=== PATIENT | female | born 1940 | race Caucasian/White ===

== ENCOUNTER 2018-07-08 10:43 | Outpatient (REF) | payer MEDICARE, OTHER, SELFPAY ==
[2018-07-08 21:29] LABS: Anion Gap 7.8 mmol/L (3-11); BUN 14 mg/dL (7-18); CO2 32.2 mmol/L (21.0-32.0); CREATININE 1.04 mg/dL (0.55-1.02); Calcium 9.4 mg/dL (8.5-10.1); Chloride 100 mmol/L (98-107); Estimated GFR 51.25 (mL/min/1.73m2); Glucose 105 mg/dL (70-100); Potassium 4.1 mmol/L (3.5-5.1); Sodium 140 mmol/L (136-145)
== END 2018-07-08 11:03 ==
LOC: NCHCN 10:43
PROVIDERS: PCP Internal Medicine; Visit Provider Internal Medicine
DX: J44.9 Chronic obstructive pulmonary disease, unspecified (principal); R49.0 Dysphonia; Z95.2 Presence of prosthetic heart valve; Z79.01 Long term (current) use of anticoagulants
CPT/HCPCS: 80048

== ENCOUNTER 2019-04-08 17:36 | Outpatient (REF) | payer MEDICARE, OTHER, SELFPAY | END 2019-04-08 17:56 | LOC: NCHCN 17:36 | PROVIDERS: PCP Internal Medicine; Visit Provider Internal Medicine | DX: R69 Illness, unspecified (principal); Z86.79 Personal history of other diseases of the circulatory system | CPT/HCPCS: 85610 ==

== ENCOUNTER 2019-08-30 14:43 | Outpatient (REF) | payer MEDICARE, OTHER, SELFPAY ==
[2019-08-30 21:25] LABS: Absolute Basophil Count 0.02 k/cumm (0.0-0.2); Absolute Eosinophil Count 0.27 k/cumm (0.0-0.7); Absolute Lymphocyte Count 0.93 k/cumm (1.2-3.4); Absolute Monocyte Count 0.55 k/cumm (0.11-0.7); Absolute Neutrophil Count 3.44 k/cumm (1.2-6.7); Basophils % 0.4; Eosinophils % 5.2; HCT 41.8 % (36.0-46.0); HGB 13.7 g/dL (12.0-15.5); Lymphocytes % 17.9; Mean Corp. HGB Concentration 32.8 g/dL (32.0-36.0); Mean Corpuscular Hemoglobin 29.9 pg (27.0-33.0); Mean Corpuscular Volume 91.3 fL (80-95); Mean Platelet Volume 10.4 fL (8.0-11.0); Monocytes % 10.6; Neutrophils % 65.9; Platelet Count 258 x1000/uL (130-400); RBC 4.58 m/cumm (4.00-5.20); RBC Distribution Width 12.8 % (11.7-14.6); White Blood Cell Count 5.21 k/cumm (4.4-10.8)
[2019-08-30 21:44] LABS: ALT 21 U/L (14-59); AST 18 U/L (15-37); Albumin 4.3 g/dL (3.4-5.0); Alkaline Phosphatase 126 U/L (46-116); Anion Gap 10.4 mmol/L (3-11); BUN 12 mg/dL (7-18); Bilirubin, Total 0.3 mg/dL (0.2-1.0); CO2 29.6 mmol/L (21.0-32.0); CREATININE 0.93 mg/dL (0.55-1.02); Chloride 98 mmol/L (98-107); Estimated GFR 58.16 (mL/min/1.73m2); Glucose 93 mg/dL (74-106); Potassium 4.4 mmol/L (3.5-5.1); Sodium 138 mmol/L (136-145); TSH 1.92 uIU/mL (0.36-3.74); Total Protein 7.7 g/dL (6.4-8.2)
== END 2019-08-30 15:03 ==
LOC: NCHCN 14:43
PROVIDERS: PCP Internal Medicine; Visit Provider Internal Medicine
DX: R63.4 Abnormal weight loss (principal); Z86.79 Personal history of other diseases of the circulatory system; Z87.311 Personal history of (healed) other pathological fracture
CPT/HCPCS: 80053; 84443; 85025

== ENCOUNTER 2020-01-28 14:34 | Outpatient (REF) | payer MEDICARE, OTHER, SELFPAY ==
[2020-01-28 20:51] LABS: INR 1.6 (0.9-1.1); Prothrombin Time 15.9 sec (9.3-11.0)
== END 2020-01-28 14:54 ==
LOC: NCHCN 14:34
PROVIDERS: PCP Internal Medicine; Visit Provider Internal Medicine
DX: Z79.01 Long term (current) use of anticoagulants (principal); Z95.2 Presence of prosthetic heart valve
CPT/HCPCS: 85610

== ENCOUNTER 2020-07-25 11:52 | Outpatient (REF) | payer MEDICARE, OTHER, SELFPAY ==
[2020-07-25 21:56] LABS: Anion Gap 8.3 mmol/L (3-11); BUN 15 mg/dL (7-18); CO2 27.7 mmol/L (21.0-32.0); CREATININE 0.93 mg/dL (0.55-1.02); Calcium 9.7 mg/dL (8.5-10.1); Chloride 100 mmol/L (98-107); Estimated GFR 58.01 (mL/min/1.73m2); Glucose 87 mg/dL (74-106); Potassium 5.3 mmol/L (3.5-5.1); Sodium 136 mmol/L (136-145)
== END 2020-07-25 12:12 ==
LOC: NCHCN 11:52
PROVIDERS: PCP Internal Medicine; Visit Provider Internal Medicine
DX: N18.30 Chronic kidney disease, stage 3 unspecified (principal)
CPT/HCPCS: 80048

== ENCOUNTER 2020-10-27 16:05 | Outpatient (REF) | payer MEDICARE, OTHER, SELFPAY ==
[2020-10-27 13:13] LABS: HCT 45.9 % (36.0-46.0); HGB 15.2 g/dL (11.2-15.7); MCH 29.1 pg (27.0-33.0); MCHC 33.1 % (32.0-36.0); MCV 87.8 fL (80-95); MPV 10.8 fL (8.0-11.0); Platelet Count 218 10^3/uL (130-400); RBC 5.23 10^6/uL (3.93-5.22); RDW 12.7 % (11.7-14.6); RDW-SD 40.9 fL; WBC 5.72 10^3/uL (4.4-10.8)
[2020-10-27 13:32] LABS: ALT 24 U/L (14-59); AST 22 U/L (15-37); Albumin 4.2 g/dL (3.4-5.0); Alkaline Phosphatase 78 U/L (46-116); Anion Gap 6.1 mmol/L (3-11); BUN 15 mg/dL (7-18); Bilirubin, Total 0.5 mg/dL (0.2-1.0); CO2 30.9 mmol/L (21.0-32.0); Chloride 100 mmol/L (98-107); Estimated GFR 53.35 (mL/min/1.73m2); Glucose 93 mg/dL (74-106); Potassium 4.5 mmol/L (3.5-5.1); Sodium 137 mmol/L (136-145); Total Protein 7.6 g/dL (6.4-8.2)
== END 2020-10-27 16:25 ==
LOC: NCHCN 16:05
PROVIDERS: PCP Internal Medicine; Visit Provider Internal Medicine
DX: N18.30 Chronic kidney disease, stage 3 unspecified (principal); Z79.01 Long term (current) use of anticoagulants; Z95.2 Presence of prosthetic heart valve
CPT/HCPCS: 80053; 85027

== ENCOUNTER 2021-03-21 15:49 | Outpatient (REF) | payer MEDICARE, OTHER, SELFPAY ==
[2021-03-21 14:43] LABS: INR 3.6 (0.9-1.1); Prothrombin Time 34.6 sec (9.3-11.0)
== END 2021-03-21 15:50 | disposition home or self-care (01) ==
LOC: NCHCN 15:49
PROVIDERS: PCP Internal Medicine; Visit Provider Internal Medicine
DX: I48.0 Paroxysmal atrial fibrillation (principal); Z79.01 Long term (current) use of anticoagulants
CPT/HCPCS: 85610

== ENCOUNTER 2021-10-10 20:38 | Outpatient (REF) | payer MEDICARE, OTHER, SELFPAY ==
[2021-10-12 15:09] LABS: COVID-19 RT-PCR UVMMC Result Negative (Negative)
== END 2021-10-10 20:39 | disposition home or self-care (01) ==
LOC: LBN 20:38
PROVIDERS: PCP Internal Medicine; Visit Provider Internal Medicine
DX: Z20.822 Contact with and (suspected) exposure to COVID-19 (principal)
CPT/HCPCS: U0003

== ENCOUNTER 2022-10-15 14:52 | Outpatient (REF) | payer MEDICARE, OTHER, SELFPAY ==
[2022-10-15 16:44] LABS: HCT 42.1 % (36.0-46.0); HGB 13.9 g/dL (11.2-15.7); MCH 28.6 pg (27.0-33.0); MCV 87 fL (80-95); MPV 10.7 fL (8.0-11.0); Platelet Count 209 10^3/uL (130-400); RBC 4.86 10^6/uL (3.93-5.22); RDW 12.4 % (11.7-14.6); RDW-SD 39.4 fL; WBC 6.46 10^3/uL (4.4-10.8)
[2022-10-15 17:23] LABS: Anion Gap 9.8 mmol/L (3-11); BUN 17 mg/dL (7-18); CO2 27.2 mmol/L (21.0-32.0); Calcium 10.2 mg/dL (8.5-10.1); Calculated LDL 71 mg/dL (<100); Chloride 101 mmol/L (98-107); Cholesterol 179 mg/dL (<200); Estimated GFR 56.25 (mL/min/1.73m2); Glucose 101 mg/dL (74-106); HDL Cholesterol 90 mg/dL (40-60); Potassium 3.8 mmol/L (3.5-5.1); Sodium 138 mmol/L (136-145); Triglyceride 90 mg/dL (<150)
== END 2022-10-15 14:53 | disposition home or self-care (01) ==
LOC: NCHCN 14:52
PROVIDERS: PCP Internal Medicine; Visit Provider Internal Medicine
DX: E78.2 Mixed hyperlipidemia (principal); Z00.00 Encounter for general adult medical examination without abnormal findings
CPT/HCPCS: 80048; 80061; 85027

== ENCOUNTER 2023-09-24 18:07 | Outpatient (REF) | payer MEDICARE, OTHER, SELFPAY ==
[2023-09-24 21:47] LABS: HCT 40.8 % (36.0-46.0); HGB 13.5 g/dL (11.2-15.7); MCH 28.8 pg (27.0-33.0); MCHC 33.1 % (32.0-36.0); MCV 87 fL (80-95); MPV 10.5 fL (8.0-11.0); Platelet Count 201 10^3/uL (130-400); RBC 4.68 10^6/uL (3.93-5.22); RDW 12.7 % (11.7-14.6); RDW-SD 40.5 fL; WBC 8.95 10^3/uL (4.4-10.8)
[2023-09-24 22:01] LABS: BUN 19 mg/dL (7-18); CREATININE 1.1 mg/dL (0.55-1.02); Calcium 9.6 mg/dL (8.5-10.1); Chloride 101 mmol/L (98-107); Estimated GFR 49.86 (mL/min/1.73m2); Glucose 98 mg/dL (74-106); Potassium 3.7 mmol/L (3.5-5.1); Sodium 140 mmol/L (136-145)
== END 2023-09-24 18:08 | disposition home or self-care (01) ==
LOC: NCHCN 18:07
PROVIDERS: PCP Internal Medicine; Visit Provider Internal Medicine
DX: R63.4 Abnormal weight loss (principal)
CPT/HCPCS: 80048; 85027

== ENCOUNTER 2023-12-31 15:21 | Outpatient (REF) | payer MEDICARE, OTHER, SELFPAY ==
[2023-12-31 21:19] LABS: HCT 45.2 % (36.0-46.0); HGB 15.1 g/dL (11.2-15.7); MCH 29.1 pg (27.0-33.0); MCHC 33.4 % (32.0-36.0); MCV 87 fL (80-95); MPV 10.2 fL (8.0-11.0); Platelet Count 241 10^3/uL (130-400); RBC 5.19 10^6/uL (3.93-5.22); RDW 12.8 % (11.7-14.6); WBC 10.16 10^3/uL (4.4-10.8)
[2023-12-31 21:27] LABS: Anion Gap 6.8 mmol/L (3-11); BUN 32 mg/dL (7-18); CO2 33.2 mmol/L (21.0-32.0); CREATININE 1.3 mg/dL (0.55-1.02); Calcium 10.2 mg/dL (8.5-10.1); Chloride 99 mmol/L (98-107); Glucose 109 mg/dL (74-106); Sodium 139 mmol/L (136-145)
== END 2023-12-31 15:22 | disposition home or self-care (01) ==
LOC: NCHCN 15:21
PROVIDERS: PCP Internal Medicine; Visit Provider Internal Medicine
DX: R06.09 Other forms of dyspnea (principal)
CPT/HCPCS: 80048; 85027

== ENCOUNTER 2024-01-09 14:41 | Outpatient (REF) | payer MEDICARE, OTHER, SELFPAY ==
[2024-01-09 21:34] LABS: Anion Gap 5.8 mmol/L (3-11); BUN 20 mg/dL (7-18); CO2 32.2 mmol/L (21.0-32.0); CREATININE 1.4 mg/dL (0.55-1.02); Calcium 9.7 mg/dL (8.5-10.1); Chloride 101 mmol/L (98-107); Estimated GFR 37.33 (mL/min/1.73m2); Glucose 108 mg/dL (74-106); Potassium 4.3 mmol/L (3.5-5.1); Sodium 139 mmol/L (136-145)
== END 2024-01-09 14:42 | disposition home or self-care (01) ==
LOC: NCHCN 14:41
PROVIDERS: PCP Internal Medicine; Visit Provider Internal Medicine
DX: R94.4 Abnormal results of kidney function studies (principal)
CPT/HCPCS: 80048

== ENCOUNTER 2024-02-19 14:35 | Outpatient (REF) | payer MEDICARE, OTHER, SELFPAY ==
[2024-02-19 21:22] LABS: Anion Gap 3.7 mmol/L (3-11); BUN 19 mg/dL (7-18); CO2 32.3 mmol/L (21.0-32.0); CREATININE 1.1 mg/dL (0.55-1.02); Calcium 9.4 mg/dL (8.5-10.1); Chloride 101 mmol/L (98-107); Estimated GFR 49.86 (mL/min/1.73m2); Glucose 87 mg/dL (74-106); Potassium 3.5 mmol/L (3.5-5.1); Sodium 137 mmol/L (136-145)
== END 2024-02-19 14:36 | disposition home or self-care (01) ==
LOC: NCHCN 14:35
PROVIDERS: PCP Internal Medicine; Visit Provider Internal Medicine
DX: R94.4 Abnormal results of kidney function studies (principal)
CPT/HCPCS: 80048

== ENCOUNTER 2024-08-23 16:36 | Outpatient (REF) | payer MEDICARE, SELFPAY ==
[2024-08-23 18:30] LABS: Anion Gap 6.7 mmol/L (3-11); BUN 15 mg/dL (7-18); CO2 36.3 mmol/L (21.0-32.0); Calcium 9.9 mg/dL (8.5-10.1); Chloride 98 mmol/L (98-107); Estimated GFR 55.55 (mL/min/1.73m2); Glucose 102 mg/dL (74-106); Potassium 3.1 mmol/L (3.5-5.1); Sodium 141 mmol/L (136-145)
== END 2024-08-23 16:37 | disposition home or self-care (01) ==
LOC: LBN 16:36
PROVIDERS: PCP Internal Medicine; Visit Provider Internal Medicine
DX: J44.9 Chronic obstructive pulmonary disease, unspecified (principal); I50.9 Heart failure, unspecified
CPT/HCPCS: 80048

== ENCOUNTER 2024-09-13 21:22 | Outpatient (REF) | payer MEDICARE, SELFPAY ==
[2024-09-13 22:35] LABS: BUN 21 mg/dL (7-18); Calcium 9.6 mg/dL (8.5-10.1); Chloride 101 mmol/L (98-107); Estimated GFR 55.55 (mL/min/1.73m2); Glucose 86 mg/dL (74-106); Potassium 4.6 mmol/L (3.5-5.1); Sodium 140 mmol/L (136-145)
== END 2024-09-13 21:23 | disposition home or self-care (01) ==
LOC: NCHCN 21:22
PROVIDERS: PCP Internal Medicine; Visit Provider Internal Medicine
DX: J44.9 Chronic obstructive pulmonary disease, unspecified (principal); I50.32 Chronic diastolic (congestive) heart failure; E87.6 Hypokalemia
CPT/HCPCS: 80048

== ENCOUNTER 2024-12-07 19:54 | Outpatient (REF) | payer MEDICARE, SELFPAY ==
[2024-12-07 21:42] LABS: HCT 39.6 % (36.0-46.0); HGB 12.8 g/dL (11.2-15.7); MCHC 32.3 % (32.0-36.0); MCV 87 fL (80-95); MPV 10.5 fL (8.0-11.0); Platelet Count 189 10^3/uL (130-400); RBC 4.57 10^6/uL (3.93-5.22); RDW 13.2 % (11.7-14.6); WBC 7.13 10^3/uL (4.4-10.8)
[2024-12-07 21:50] LABS: ALT 15 U/L (14-59); AST 20 U/L (15-37); Albumin 3.4 g/dL (3.4-5.0); Alkaline Phosphatase 92 U/L (46-116); Anion Gap 2.8 mmol/L (3-11); BUN 20 mg/dL (7-18); Bilirubin, Total 0.2 mg/dL (0.2-1.0); CO2 33.2 mmol/L (21.0-32.0); CREATININE 1.1 mg/dL (0.55-1.02); Calcium 9.7 mg/dL (8.5-10.1); Chloride 101 mmol/L (98-107); Estimated GFR 49.55 (mL/min/1.73m2); Glucose 98 mg/dL (74-106); Potassium 4.6 mmol/L (3.5-5.1); Sodium 137 mmol/L (136-145)
== END 2024-12-07 19:55 | disposition home or self-care (01) ==
LOC: NCHCN 19:54
PROVIDERS: PCP Internal Medicine; Visit Provider Internal Medicine
DX: N18.31 Chronic kidney disease, stage 3a (principal)
CPT/HCPCS: 80053; 85027

== ENCOUNTER 2025-06-24 15:13 | Outpatient (REF) | payer MEDICARE, SELFPAY ==
[2025-06-24 21:27] LABS: Anion Gap 7.9 mmol/L (3-11); BUN 22 mg/dL (7-18); CO2 31.1 mmol/L (21.0-32.0); Calcium 9.4 mg/dL (8.5-10.1); Chloride 100 mmol/L (98-107); Estimated GFR 40.30 (mL/min/1.73m2); Glucose 108 mg/dL (74-106); Potassium 5.0 mmol/L (3.5-5.1); Sodium 139 mmol/L (136-145)
== END 2025-06-24 15:14 | disposition home or self-care (01) ==
LOC: NCHCN 15:13
PROVIDERS: PCP Internal Medicine; Visit Provider Internal Medicine
DX: N18.31 Chronic kidney disease, stage 3a (principal)
CPT/HCPCS: 80048

== ENCOUNTER 2025-08-24 11:38 | Outpatient (REF) | payer MEDICARE, SELFPAY ==
[2025-08-24 14:51] LABS: Anion Gap 8.9 mmol/L (3-11); BUN 18 mg/dL (9-23); CO2 34.1 mmol/L (20.0-31.0); Calcium 10.3 mg/dL (8.3-10.6); Chloride 97 mmol/L (98-107); Glucose 102 mg/dL (74-106); Potassium 3.5 mmol/L (3.5-5.1); Sodium 140 mmol/L (136-145)
== END 2025-08-24 11:39 | disposition home or self-care (01) ==
LOC: NCHCN 11:38
PROVIDERS: PCP Internal Medicine; Visit Provider Internal Medicine
DX: N18.31 Chronic kidney disease, stage 3a (principal)
CPT/HCPCS: 80048